=== PATIENT | female | born 1980 | race Hispanic/Latino ===

== ENCOUNTER 2024-01-16 00:23 | Emergency (ER) | payer OTHER ==
[~2024-01-16] VITALS: Ht 160 cm; Wt 59.0 kg
[2024-01-16 00:45] VITALS: BP 130/88; PULSE 94; RESP 18; O2SAT 100
== END 2024-01-16 01:35 ==
LOC: EDH 00:23
DX: F10.129 Alcohol abuse with intoxication, unspecified (principal)